=== PATIENT | female | born 1935 | race Caucasian/White ===

== ENCOUNTER 2017-02-23 08:30 | Outpatient (RCR) | payer MEDICARE, BC ==
[2017-01-26 08:52] VITALS: BP 134/77; PULSE 62; TEMP 98
[2017-01-27 08:48] VITALS: BP 126/49; PULSE 58; TEMP 98.3
[2017-01-28 08:46] VITALS: BP 122/50; PULSE 63; TEMP 98
[2017-01-28 09:37] LABS: BASO % 0.5 % (0.0-2.0); EOS # 0.3 (0.0-0.7); EOS % 5.5 % (0-4.0); GRAN # 4.3 (1.4-6.5); GRAN % 72.1 % (42.2-75.2); HEMATOCRIT 38.1 % (37.0-47.0); HEMOGLOBIN 12.6 g/dl (12.5-16.0); LYMPH # 0.9 (1.2-3.4); LYMPH % 14.5 % (20.0-51.0); MEAN CELL VOLUME 101 fl (80.0-100.0); MEAN CORPUSCULAR HEMOGLOBIN 34 pg (27.0-31.0); MEAN CORPUSCULAR HGB CONC 33 g/dl (33.0-37.0); MEAN PLATELET VOLUME 11.7 fl (7.4-10.4); MONO # 0.4 (0.1-0.6); MONO % 7.2 % (1.7-9.3); PLATELET COUNT 194 K/mm3 (130-400); RED BLOOD COUNT 3.76 M/mm3 (4.10-5.30)
[2017-01-28 09:46] LABS: ADJUSTED CALCIUM 9.6 mg/dL (8.4-10.2); ALANINE AMINOTRANSFERASE 28 U/L (9-52); ALBUMIN 3.9 gm/dL (3.5-5.0); ALKALINE PHOSPHATASE 69 U/L (50-136); ANION GAP 8 mmol/L (7-16); BILIRUBIN,TOTAL 0.5 mg/dL (0.0-1.0); BLOOD UREA NITROGEN 20 mg/dL (7-17); CALCIUM 9.5 mg/dL (8.4-10.2); CARBON DIOXIDE 30 mmol/L (22-30); CHLORIDE 102 mmol/L (98-107); CREATININE, serum 0.66 mg/dL (0.52-1.25); GLUCOSE 117 mg/dL (74-106); POTASSIUM 4.1 mmol/L (3.4-5.0); SODIUM 140 mmol/L (137-145); TOTAL PROTEIN 6.5 gm/dL (6.4-8.2)
[2017-01-28 09:47] LABS: C-REACTIVE PROTEIN < 0.5 mg/dL (0.0-0.9)
[2017-01-28 10:22] LABS: ERYTHROCYTE SEDIMENTATION RATE 13 mm/hr (0-30)
[2017-01-29 08:28] VITALS: BP 120/59; PULSE 60; TEMP 97.7
[2017-01-30 08:49] VITALS: BP 124/68; PULSE 63; TEMP 97.2
[2017-01-31 08:57] VITALS: BP 149/56; PULSE 69; TEMP 97.9
[2017-02-01 08:21] VITALS: BP 140/59; PULSE 64; TEMP 97.5
[2017-02-02 08:37] VITALS: BP 132/54; PULSE 61; TEMP 98
[2017-02-03 08:44] VITALS: BP 128/57; PULSE 63; TEMP 98.4
[2017-02-04 08:23] VITALS: BP 147/57; PULSE 62; TEMP 97.3
[2017-02-05 08:55] VITALS: BP 148/72; PULSE 62; TEMP 97.3
[2017-02-06 08:24] VITALS: BP 121/66; PULSE 104; TEMP 97.4
[2017-02-07 08:42] VITALS: BP 127/73; PULSE 62; TEMP 97.8
[2017-02-08 08:43] VITALS: BP 129/76; PULSE 97; TEMP 97.9
[2017-02-09 06:05] VITALS: BP 143/66; PULSE 69; TEMP 97.8
[2017-02-09 06:20] LABS: BASO # 0.1 (0.0-0.2); BASO % 0.9 % (0.0-2.0); EOS # 0.4 (0.0-0.7); EOS % 5.3 % (0-4.0); GRAN # 4.8 (1.4-6.5); GRAN % 70.8 % (42.2-75.2); HEMATOCRIT 39.9 % (37.0-47.0); HEMOGLOBIN 13.3 g/dl (12.5-16.0); LYMPH % 15.2 % (20.0-51.0); MEAN CELL VOLUME 101 fl (80.0-100.0); MEAN CORPUSCULAR HEMOGLOBIN 34 pg (27.0-31.0); MEAN CORPUSCULAR HGB CONC 33 g/dl (33.0-37.0); MEAN PLATELET VOLUME 11.7 fl (7.4-10.4); MONO # 0.5 (0.1-0.6); MONO % 7.5 % (1.7-9.3); PLATELET COUNT 197 K/mm3 (130-400); RED BLOOD COUNT 3.94 M/mm3 (4.10-5.30); WHITE BLOOD COUNT 6.8 K/mm3 (4.8-10.8)
[2017-02-09 06:42] LABS: ERYTHROCYTE SEDIMENTATION RATE 14 mm/hr (0-30)
[2017-02-09 07:07] LABS: ADJUSTED CALCIUM 9.4 mg/dL (8.4-10.2); BILIRUBIN,TOTAL 0.8 mg/dL (0.0-1.0); CALCIUM 9.4 mg/dL (8.4-10.2); CREATININE, serum 0.7 mg/dL (0.52-1.25); POTASSIUM 3.9 mmol/L (3.4-5.0); TOTAL PROTEIN 6.7 gm/dL (6.4-8.2)
[2017-02-10 13:09] VITALS: BP 117/50; PULSE 59; TEMP 97.7
[2017-02-11 11:35] VITALS: BP 112/58; PULSE 60; TEMP 98.6
[2017-02-12 08:34] VITALS: BP 151/65; PULSE 65; TEMP 98.2
[2017-02-13 08:30] VITALS: BP 123/89; PULSE 58; TEMP 97.9
[2017-02-14 08:27] VITALS: BP 144/62; PULSE 64; TEMP 97.6
[2017-02-15 08:36] VITALS: BP 129/52; PULSE 60; TEMP 97.6
[2017-02-16 08:38] VITALS: BP 130/59; PULSE 59; TEMP 97.9
[2017-02-16 09:00] LABS: BASO # 0.1 (0.0-0.2); BASO % 0.8 % (0.0-2.0); EOS # 0.4 (0.0-0.7); EOS % 5.9 % (0-4.0); GRAN # 4.6 (1.4-6.5); GRAN % 71.6 % (42.2-75.2); HEMATOCRIT 41.7 % (37.0-47.0); HEMOGLOBIN 13.9 g/dl (12.5-16.0); LYMPH # 0.9 (1.2-3.4); LYMPH % 14.2 % (20.0-51.0); MEAN CELL VOLUME 101 fl (80.0-100.0); MEAN CORPUSCULAR HEMOGLOBIN 34 pg (27.0-31.0); MEAN CORPUSCULAR HGB CONC 33 g/dl (33.0-37.0); MEAN PLATELET VOLUME 11.9 fl (7.4-10.4); MONO # 0.5 (0.1-0.6); MONO % 7.3 % (1.7-9.3); PLATELET COUNT 235 K/mm3 (130-400); RED BLOOD COUNT 4.14 M/mm3 (4.10-5.30); WHITE BLOOD COUNT 6.4 K/mm3 (4.8-10.8)
[2017-02-16 09:06] LABS: ADJUSTED CALCIUM 9.9 mg/dL (8.4-10.2); ALANINE AMINOTRANSFERASE 48 U/L (9-52); ALBUMIN 4.5 gm/dL (3.5-5.0); ALKALINE PHOSPHATASE 83 U/L (50-136); ANION GAP 8 mmol/L (7-16); BILIRUBIN,TOTAL 0.8 mg/dL (0.0-1.0); BLOOD UREA NITROGEN 20 mg/dL (7-17); CALCIUM 10.3 mg/dL (8.4-10.2); CARBON DIOXIDE 31 mmol/L (22-30); CHLORIDE 99 mmol/L (98-107); CREATININE, serum 0.68 mg/dL (0.52-1.25); GLUCOSE 130 mg/dL (74-106); POTASSIUM 4.5 mmol/L (3.4-5.0); SODIUM 137 mmol/L (137-145); TOTAL PROTEIN 7.6 gm/dL (6.4-8.2)
[2017-02-16 09:11] LABS: C-REACTIVE PROTEIN < 0.5 mg/dL (0.0-0.9)
[2017-02-16 09:24] LABS: ERYTHROCYTE SEDIMENTATION RATE 13 mm/hr (0-30)
[2017-02-17 08:47] VITALS: BP 137/58; PULSE 63; TEMP 97.7
[2017-02-18 08:30] VITALS: BP 153/54; PULSE 65; TEMP 97.5
[2017-02-19 08:34] VITALS: BP 130/53; PULSE 67; TEMP 97.7
[2017-02-20 08:31] VITALS: BP 142/55; PULSE 62; TEMP 97.4
[2017-02-21 08:07] VITALS: BP 114/60; PULSE 64; TEMP 97.6
[2017-02-22 08:05] VITALS: BP 149/58; PULSE 61; TEMP 97
[~2017-02-23] VITALS: Ht 160 cm; Wt 90.8 kg
[2017-02-23 08:30] VITALS: BP 121/52; PULSE 60; TEMP 97.9
[~2017-02-23 08:30] MED LIST: ALDACTONE50 MG PO; ALLEGRA 60MG TA60 MG PO; ALLEGRA180 MG PO; ASPIRIN 32325 MG/TAB PO; ASPIRIN 81M81 MG/TA2 PO; BETAPACE AF120 MG PO; BETAPACE240 MG PO; BINOSTO PO; CALCIUM CITRAT950 MG PO; CALCIUM500 MG PO; CARDIZEM CD 24240 MG PO; CARTIA XT180 MG PO; CEFTIN 250250 MG/TAB PO; ERAXIS100 MG IV; FLOVENT DI50 MCG/Act IH; FLUNISOLIDE NS; IPRATROPIUM BROM3 M1 IH; LIPITOR20 MG PO; LOPRESSOR 550 MG/TAB PO; LUTEIN20 M1 PO; LUTEIN20 MG PO; METOPROLOL SUCC25 MG PO; MOBIC15 MG PO; MYSOLINE 5050 MG/TAB PO; NORCO 325 MG-51 TAB PO; OMEGA-3 1000 MG1 CAP PO; PERCOCET 325 MG1 TA2 PO; PYRIDIUM200 M1 PO; SINGULAIR 110 MG/TAB PO; TOPAMAX 25MG25 M1 PO; VITAMIN D 1001000 IU PO; VITAMIN D5000 IU PO; ZOCOR80 MG PO; ZYRTEC 10MG10 MG PO; ZYRTEC ALLERGY10 MG
== END 2017-02-23 10:38 | disposition home or self-care (01) ==
LOC: EUO 08:30
PROVIDERS: Internal Medicine Infectious Disease
DX: J41.1 Mucopurulent chronic bronchitis (principal); J47.9 Bronchiectasis, uncomplicated; B37.9 Candidiasis, unspecified
CPT/HCPCS: C1751; C1894; J0348; J1644

== ENCOUNTER 2017-06-27 11:02 | Inpatient (IN) | payer MEDICARE, BC ==
[~2017-06-27] VITALS: Ht 160 cm; Wt 88.7 kg
[2017-06-27 12:24] LABS: BASO % 0.4 % (0.0-2.0); EOS # 0.5 (0.0-0.7); EOS % 7.4 % (0-4.0); GRAN # 5.1 (1.4-6.5); HEMATOCRIT 41.4 % (37.0-47.0); HEMOGLOBIN 13.7 g/dl (12.5-16.0); LYMPH # 0.9 (1.2-3.4); LYMPH % 12.7 % (20.0-51.0); MEAN CELL VOLUME 100 fl (80.0-100.0); MEAN CORPUSCULAR HEMOGLOBIN 33 pg (27.0-31.0); MEAN CORPUSCULAR HGB CONC 33 g/dl (33.0-37.0); MEAN PLATELET VOLUME 11.2 fl (7.4-10.4); MONO # 0.5 (0.1-0.6); MONO % 7.4 % (1.7-9.3); PLATELET COUNT 190 K/mm3 (130-400); RED BLOOD COUNT 4.14 M/mm3 (4.10-5.30); REDCELL DISTRIBUTION WIDTH-CV 13.1 % (11.5-14.5)
[2017-06-27 12:30] LABS: PROTHROMBIN TIME 11.5 SECONDS (9.7-12.8)
[2017-06-27 12:33] LABS: PARTIAL THROMBOPLASTIN TIME 27.3 SECONDS (26.0-37.0)
[2017-06-27 12:38] LABS: ALANINE AMINOTRANSFERASE 32 U/L (9-52); ALBUMIN 3.9 gm/dL (3.5-5.0); ALKALINE PHOSPHATASE 64 U/L (50-136); ANION GAP 10 mmol/L (7-16); AST,SGOT 25 U/L (15-37); BILIRUBIN,TOTAL 0.6 mg/dL (0.0-1.0); BLOOD UREA NITROGEN 27 mg/dL (7-17); CALCIUM 9.5 mg/dL (8.4-10.2); CARBON DIOXIDE 32 mmol/L (22-30); CHLORIDE 100 mmol/L (98-107); CREATININE, serum 0.67 mg/dL (0.52-1.25); GLUCOSE 118 mg/dL (74-106); POTASSIUM 4.1 mmol/L (3.4-5.0); SODIUM 142 mmol/L (137-145); TOTAL PROTEIN 7.8 gm/dL (6.4-8.2)
[2017-06-27 12:47] LABS: C-REACTIVE PROTEIN < 0.5 mg/dL (0.0-0.9); TROPONIN-I < 0.012 ng/mL (0.000-0.034)
[2017-06-27 12:51] LABS: COLLECTION METHOD CLEAN CATCH
[2017-06-27 13:06] LABS: PH 8 (5-8); SQUAMOUS EPITHELIAL 0-2 /hpf; URINE APPEARANCE Hazy; URINE BACTERIA Many /hpf; URINE BILIRUBIN Negative (NEGATIVE); URINE BLOOD 1+ (NEGATIVE); URINE COLOR Straw; URINE GLUCOSE Negative (NEGATIVE); URINE KETONE Negative (NEGATIVE); URINE LEUKOCYTE ESTERASE 3+ (NEGATIVE); URINE NITRATE Positive (NEGATIVE); URINE PROTEIN(semi-quant) Negative (NEGATIVE); URINE RBC 0-2 /hpf; URINE UROBILINOGEN Negative (NEGATIVE)
[2017-06-27 15:01] VITALS: BP 123/53; PULSE 57; TEMP 97.9
[2017-06-27 15:07] VITALS: BP 123/52; PULSE 56; TEMP 97.9
[2017-06-27 20:00] VITALS: BP 117/42; PULSE 56; TEMP 98.6
[2017-06-27 23:30] VITALS: BP 124/68; PULSE 100; TEMP 98.6
[2017-06-28 04:04] VITALS: BP 130/55; PULSE 58; TEMP 98.6
[2017-06-28 07:39] VITALS: PULSE 58; TEMP 97.6
[2017-06-28 07:44] LABS: CHOLESTEROL RISK RATIO 2.6
[2017-06-28 08:13] LABS: THYROID STIMULATING HORMONE 0.254 uIU/mL (0.465-4.680)
[2017-06-28 13:09] VITALS: BP 106/42; PULSE 58; TEMP 97.8
[2017-06-28 15:33] VITALS: BP 121/42; PULSE 60; TEMP 98.5
[2017-06-28 20:13] VITALS: BP 111/61; PULSE 60; TEMP 97.3
[2017-06-28 23:39] VITALS: BP 116/53; PULSE 55; TEMP 97.1
[2017-06-29 04:15] VITALS: BP 123/64; PULSE 55; TEMP 97.2
[2017-06-29 07:25] VITALS: BP 134/55; PULSE 58; TEMP 98.2
[2017-06-29] MEDS ORDERED: XARELTO20 MG PO (08:47)
[2017-06-29] MEDS ORDERED: CEPHALEXIN500 M1 PO (08:48)
[2017-06-29 09:40] VITALS: PULSE 68
[2017-06-29 14:45] LABS: FOLATE (FOLIC ACID) 5.8 ng/mL (7.0-31.4)
[2017-06-30] MEDS ORDERED: CEPHALEXIN500 M1 PO (11:46)
== END 2017-06-29 11:50 | disposition home or self-care (01) | DRG 65 ==
LOC: COL.ER 11:02 → MEDICAL 13:29
PROVIDERS: Emergency Medicine; Internal Medicine; Psychiatry & Neurology Neurology
DX: I63.9 Cerebral infarction, unspecified (principal); N39.0 Urinary tract infection, site not specified; H53.9 Unspecified visual disturbance; I10 Essential (primary) hypertension; I48.91 Unspecified atrial fibrillation; H81.09 Meniere's disease, unspecified ear; D75.89 Other specified diseases of blood and blood-forming organs; J47.9 Bronchiectasis, uncomplicated; E78.5 Hyperlipidemia, unspecified; Z96.641 Presence of right artificial hip joint
CPT/HCPCS: 99223-AI; 99239; J0696

== ENCOUNTER 2017-08-31 09:19 | Outpatient (CLI) | payer MEDICARE, BC ==
[~2017-08-31] VITALS: Ht 160.1 cm; Wt 86.0 kg
[2017-08-31] VITALS (10 sets, daily range): BP systolic 109–142; BP diastolic 54–78; PULSE 55–62; TEMP 97.5–98.1
[~2017-08-31 09:19] MED LIST changes: +CEPHALEXIN500 M1 PO; +XARELTO20 MG PO
[2017-08-31 09:44] LABS: HEMATOCRIT 40.1 % (37.0-47.0); HEMOGLOBIN 13.4 g/dl (12.5-16.0); MEAN CELL VOLUME 101 fl (80.0-100.0); MEAN CORPUSCULAR HEMOGLOBIN 34 pg (27.0-31.0); MEAN CORPUSCULAR HGB CONC 33 g/dl (33.0-37.0); MEAN PLATELET VOLUME 10.7 fl (7.4-10.4); PLATELET COUNT 216 K/mm3 (130-400); RED BLOOD COUNT 3.99 M/mm3 (4.10-5.30); REDCELL DISTRIBUTION WIDTH-CV 13.5 % (11.5-14.5)
[2017-08-31 09:50] LABS: PROTHROMBIN TIME 11.1 SECONDS (9.7-12.8)
[2017-08-31 09:56] LABS: CALCIUM 9.4 mg/dL (8.4-10.2); CREATININE, serum 0.63 mg/dL (0.52-1.25); POTASSIUM 4.4 mmol/L (3.4-5.0)
[2017-08-31] MEDS ORDERED: XARELTO20 MG PO (10:13)
[2017-08-31] MEDS ORDERED: ASPI325T6 PO (10:15)
[2017-08-31] MEDS ORDERED: PACERONE200 MG PO (11:30)
[2017-08-31 11:32] LABS: BILIRUBIN UNCONJUGATED 0.4 mg/dL (0.0-1.1); BILIRUBIN,DIRECT 0.2 mg/dL (0.0-0.4); BILIRUBIN,TOTAL 0.6 mg/dL (0.0-1.0); TOTAL PROTEIN 7.6 gm/dL (6.4-8.2)
[2017-08-31 12:00] LABS: THYROID STIMULATING HORMONE 0.396 uIU/mL (0.465-4.680)
== END 2017-08-31 13:16 | disposition home or self-care (01) ==
LOC: COL.RAD 09:19
PROVIDERS: Internal Medicine Cardiovascular Disease; Nurse Practitioner
DX: I08.3 Combined rheumatic disorders of mitral, aortic and tricuspid valves (principal); G45.9 Transient cerebral ischemic attack, unspecified
CPT/HCPCS: J2704; J3010; J7030

== ENCOUNTER 2018-08-20 18:21 | Emergency (ER) | payer MEDICARE, BC ==
[~2018-08-20] VITALS: Ht 160 cm; Wt 80.5 kg
[~2018-08-20 18:21] MED LIST changes: +ASPI325T6 PO; +PACERONE200 MG PO
[2018-08-20 18:23] VITALS: TEMP 98.2
[2018-08-20] MEDS ORDERED: CORDARONE200 MG/TAB PO (19:07)
[2018-08-20 21:46] VITALS: BP 124/62; PULSE 65
== END 2018-08-20 20:32 | disposition home or self-care (01) ==
LOC: COL.ER 18:21
DX: T84.020A Dislocation of internal right hip prosthesis, initial encounter (principal); I48.91 Unspecified atrial fibrillation; I10 Essential (primary) hypertension; Z86.73 Personal history of transient ischemic attack (TIA), and cerebral infarction without residual deficits; Z79.51 Long term (current) use of inhaled steroids; X50.0XXA Overexertion from strenuous movement or load, initial encounter
CPT/HCPCS: J2405; J2704; J3010; J7040

== ENCOUNTER → 2018-12-27 | Outpatient (CLI) | payer MEDICARE, BC ==
[~2018-12-27] MED LIST changes: +CORDARONE200 MG/TAB PO
== END ==
LOC: COL.RAD 12:47
DX: G25.0 Essential tremor (principal); G31.9 Degenerative disease of nervous system, unspecified; I67.82 Cerebral ischemia

== ENCOUNTER 2019-02-21 09:23 | Emergency (ER) | payer MEDICARE, BC ==
[~2019-02-21] VITALS: Ht 160 cm; Wt 74.5 kg
[2019-02-21 09:24] VITALS: TEMP 98.3
[2019-02-21 10:08] LABS: BASO % 0.5 % (0.0-2.0); EOS # 0.5 (0.0-0.7); EOS % 8.1 % (0-4.0); GRAN # 4.6 (1.4-6.5); GRAN % 73.2 % (42.2-75.2); HEMATOCRIT 38.6 % (37.0-47.0); LYMPH # 0.5 (1.2-3.4); LYMPH % 7.6 % (20.0-51.0); MEAN CELL VOLUME 104 fl (80.0-100.0); MEAN CORPUSCULAR HEMOGLOBIN 35 pg (27.0-31.0); MEAN CORPUSCULAR HGB CONC 34 g/dl (33.0-37.0); MEAN PLATELET VOLUME 11.1 fl (7.4-10.4); MONO # 0.6 (0.1-0.6); PLATELET COUNT 214 K/mm3 (130-400); RED BLOOD COUNT 3.73 M/mm3 (4.10-5.30)
[2019-02-21 10:18] LABS: BILIRUBIN,TOTAL 0.6 mg/dL (0.0-1.0); CALCIUM 9.1 mg/dL (8.4-10.2); CREATININE, serum 0.72 (0.52-1.25); POTASSIUM 4.4 mmol/L (3.4-5.0)
[2019-02-21 10:49] LABS: COLLECTION METHOD CLEAN CATCH
[2019-02-21 10:56] LABS: URINE APPEARANCE Hazy; URINE COLOR Yellow
[2019-02-21 10:57] LABS: PH 7 (5-8); URINE BILIRUBIN Negative (NEGATIVE); URINE BLOOD Negative (NEGATIVE); URINE GLUCOSE Negative (NEGATIVE); URINE KETONE Negative (NEGATIVE); URINE LEUKOCYTE ESTERASE 2+ (NEGATIVE); URINE NITRATE Negative (NEGATIVE); URINE PROTEIN(semi-quant) Negative (NEGATIVE); URINE UROBILINOGEN Negative (NEGATIVE)
[2019-02-21] MEDS ORDERED: PACERONE100 MG PO (11:11)
[2019-02-21] MEDS ORDERED: COREG12.5 MG PO (11:12)
[2019-02-21] MEDS ORDERED: COUMADIN 3MG3 MG/TAB PO (11:12)
[2019-02-21] MEDS ORDERED: ALLEGRA-D 24HR1 T24 PO (11:12)
[2019-02-21 11:14] LABS: URINE RBC 0-2 /hpf
[2019-02-21 11:15] LABS: SQUAMOUS EPITHELIAL 0-2 /hpf; URINE BACTERIA Many /hpf
[2019-02-21] MEDS ORDERED: FLOVENT DI50 MCG/Act IH (11:15)
[2019-02-21] MEDS ORDERED: ALDACTONE 100M100 MG PO (11:17)
[2019-02-21] MEDS ORDERED: MACROBID 1100 MG/CAP PO (11:18)
[2019-02-21 11:55] VITALS: BP 131/63; PULSE 72
== END 2019-02-21 11:55 | disposition home or self-care (01) ==
LOC: COL.ER 09:23
PROVIDERS: Family Medicine
DX: S00.93XA Contusion of unspecified part of head, initial encounter (principal); N39.0 Urinary tract infection, site not specified; I48.91 Unspecified atrial fibrillation; I10 Essential (primary) hypertension; R40.2410 Glasgow coma scale score 13-15, unspecified time; Z79.01 Long term (current) use of anticoagulants; W01.10XA Fall on same level from slipping, tripping and stumbling with subsequent striking against unspecified object, initial encounter

== ENCOUNTER 2019-03-12 10:00 | Emergency (ER) | payer MEDICARE, BC ==
[~2019-03-12] VITALS: Ht 160 cm; Wt 75.0 kg
[~2019-03-12 10:00] MED LIST changes: +ALDACTONE 100M100 MG PO; +ALLEGRA-D 24HR1 T24 PO; +COREG12.5 MG PO; +COUMADIN 3MG3 MG/TAB PO; +MACROBID 1100 MG/CAP PO; +PACERONE100 MG PO
[2019-03-12 10:05] VITALS: TEMP 98.4
[2019-03-12 10:56] LABS: BASO % 0.6 % (0.0-2.0); EOS # 0.3 (0.0-0.7); GRAN # 4.1 (1.4-6.5); GRAN % 75.7 % (42.2-75.2); HEMATOCRIT 39.2 % (37.0-47.0); HEMOGLOBIN 13.2 g/dl (12.5-16.0); LYMPH # 0.4 (1.2-3.4); LYMPH % 8.1 % (20.0-51.0); MEAN CELL VOLUME 103 fl (80.0-100.0); MEAN CORPUSCULAR HEMOGLOBIN 35 pg (27.0-31.0); MEAN CORPUSCULAR HGB CONC 34 g/dl (33.0-37.0); MEAN PLATELET VOLUME 11.4 fl (7.4-10.4); MONO # 0.6 (0.1-0.6); MONO % 10.4 % (1.7-9.3); PLATELET COUNT 217 K/mm3 (130-400); REDCELL DISTRIBUTION WIDTH-CV 13.8 % (11.5-14.5)
[2019-03-12 11:13] LABS: ALANINE AMINOTRANSFERASE 35 U/L (9-52); ALBUMIN 4.2 gm/dL (3.5-5.0); ALKALINE PHOSPHATASE 132 U/L (50-136); ANION GAP 9 mmol/L (7-16); AST,SGOT 36 U/L (15-37); BILIRUBIN,TOTAL 0.5 mg/dL (0.0-1.0); BLOOD UREA NITROGEN 18 mg/dL (7-17); CALCIUM 9.5 mg/dL (8.4-10.2); CARBON DIOXIDE 30 mmol/L (22-30); CHLORIDE 95 mmol/L (98-107); CREATININE, serum 0.77 (0.52-1.25); GLUCOSE 125 mg/dL (74-106); LIPASE 115 U/L (23-300); POTASSIUM 4.5 mmol/L (3.4-5.0); SODIUM 134 mmol/L (137-145); TOTAL PROTEIN 8.6 gm/dL (6.4-8.2)
[2019-03-12 11:19] LABS: INR 2.8 (0.8-3.0); PROTHROMBIN TIME 33.8 SECONDS (9.7-12.8)
[2019-03-12 11:22] LABS: TROPONIN-I < 0.012 ng/mL (0.000-0.035)
[2019-03-12 11:28] LABS: COLLECTION METHOD CLEAN CATCH
[2019-03-12 11:46] LABS: MUCOUS Present /lpf; PH 7 (5-8); SQUAMOUS EPITHELIAL 0-2 /hpf; URINE APPEARANCE Hazy; URINE BACTERIA Rare /hpf; URINE BILIRUBIN Negative (NEGATIVE); URINE BLOOD 1+ (NEGATIVE); URINE COLOR Yellow; URINE GLUCOSE Negative (NEGATIVE); URINE KETONE Negative (NEGATIVE); URINE LEUKOCYTE ESTERASE 3+ (NEGATIVE); URINE NITRATE Negative (NEGATIVE); URINE PROTEIN(semi-quant) Negative (NEGATIVE); URINE RBC 0-2 /hpf; URINE UROBILINOGEN Negative (NEGATIVE)
[2019-03-12] MEDS ORDERED: OMNICEF 300MG300 MG PO (11:54)
[2019-03-12] MEDS ORDERED: CORDARONE200 MG/TAB PO (12:11)
[2019-03-12 13:00] VITALS: BP 129/68; PULSE 63
== END 2019-03-12 13:04 | disposition home or self-care (01) ==
LOC: COL.ER 10:00
PROVIDERS: Emergency Medicine
DX: N39.0 Urinary tract infection, site not specified (principal); R00.2 Palpitations; E78.5 Hyperlipidemia, unspecified; I48.91 Unspecified atrial fibrillation; Z79.01 Long term (current) use of anticoagulants; Z86.73 Personal history of transient ischemic attack (TIA), and cerebral infarction without residual deficits; Z79.51 Long term (current) use of inhaled steroids
CPT/HCPCS: A4216; J0696; J7040

== ENCOUNTER 2020-01-02 13:30 | Outpatient (RCR) | payer MEDICARE, BC ==
[~2020-01-02 13:30] MED LIST changes: +OMNICEF 300MG300 MG PO
== END 2020-02-02 15:51 | disposition home or self-care (01) ==
LOC: WSOT 13:30
DX: R53.1 Weakness (principal); R27.8 Other lack of coordination

== ENCOUNTER 2020-01-10 17:15 | Emergency (ER) | payer MEDICARE, BC ==
[~2020-01-10] VITALS: Ht 160 cm; Wt 70.5 kg
[2020-01-10 17:16] VITALS: TEMP 98.8
[2020-01-10 18:09] LABS: BASO % 0.3 % (0.0-2.0); EOS # 0.2 (0.0-0.7); GRAN # 8.3 (1.4-6.5); GRAN % 82.6 % (42.2-75.2); HEMOGLOBIN 11.7 g/dl (12.5-16.0); LYMPH # 0.6 (1.2-3.4); LYMPH % 6.3 % (20.0-51.0); MEAN CELL VOLUME 103 fl (80.0-100.0); MEAN CORPUSCULAR HEMOGLOBIN 36 pg (27.0-31.0); MEAN CORPUSCULAR HGB CONC 35 g/dl (33.0-37.0); MEAN PLATELET VOLUME 11.6 fl (7.4-10.4); MONO # 0.8 (0.1-0.6); MONO % 8.4 % (1.7-9.3); PLATELET COUNT 220 K/mm3 (130-400); RED BLOOD COUNT 3.24 M/mm3 (4.10-5.30); REDCELL DISTRIBUTION WIDTH-CV 13.5 % (11.5-14.5)
[2020-01-10 18:10] LABS: INR 3.9 (0.8-3.0); PROTHROMBIN TIME 44.2 SECONDS (9.7-12.8)
[2020-01-10 18:13] LABS: HEMATOCRIT 33.5 % (37.0-47.0)
[2020-01-10 18:19] LABS: ALBUMIN 3.8 gm/dL (3.5-5.0); BILIRUBIN,TOTAL 0.4 mg/dL (0.0-1.0); CALCIUM 9.1 mg/dL (8.4-10.2); CREATININE, serum 0.7 (0.52-1.25); POTASSIUM 4.4 mmol/L (3.4-5.0)
[2020-01-10 22:15] VITALS: BP 127/59; PULSE 64
== END 2020-01-10 22:29 | disposition home or self-care (01) ==
LOC: COL.ER 17:15
PROVIDERS: Emergency Medicine
DX: S73.014A Posterior dislocation of right hip, initial encounter (principal); I10 Essential (primary) hypertension; I48.91 Unspecified atrial fibrillation; E78.5 Hyperlipidemia, unspecified; Z86.73 Personal history of transient ischemic attack (TIA), and cerebral infarction without residual deficits; Z96.641 Presence of right artificial hip joint; Z88.2 Allergy status to sulfonamides; Z88.1 Allergy status to other antibiotic agents; Z79.01 Long term (current) use of anticoagulants; X58.XXXA Exposure to other specified factors, initial encounter; Y92.009 Unspecified place in unspecified non-institutional (private) residence as the place of occurrence of the external cause
CPT/HCPCS: J2405; J2704; J3010

== ENCOUNTER 2021-04-23 12:27 | Inpatient (IN) | payer MEDICARE, BC ==
[~2021-04-23] VITALS: Ht 160 cm; Wt 77.8 kg
[~2021-04-23 12:27] MED LIST changes: +ATIVAN 0.50.5 MG/TAB PO; +COREG 25MG25 MG/TAB PO; -COREG12.5 MG PO
[2021-04-23 12:54] LABS: BASO # 0.1 K/mm3 (0.0-0.2); BASO % 0.3 % (0.0-2.0); EOS # 0.1 K/mm3 (0.0-0.7); EOS % 0.3 % (0.0-4.0); GRAN # 16.4 K/mm3 (1.4-6.5); GRAN % 89.2 % (42.2-75.2); HEMOGLOBIN 10.2 g/dl (12.5-16.0); LYMPH # 0.5 K/mm3 (1.2-3.4); LYMPH % 2.6 % (20.0-51.0); MEAN CELL VOLUME 90 fl (80.0-100.0); MEAN CORPUSCULAR HEMOGLOBIN 29 pg (27-31); MEAN CORPUSCULAR HGB CONC 33 g/dl (33.0-37.0); MEAN PLATELET VOLUME 11.2 fl (7.4-10.4); MONO # 1.3 K/mm3 (0.1-0.6); MONO % 7.1 % (1.7-9.3); PLATELET COUNT 247 K/mm3 (130-400); REDCELL DISTRIBUTION WIDTH-CV 19.1 % (11.5-14.5)
[2021-04-23 12:57] LABS: HEMATOCRIT 31.4 % (37.0-47.0)
[2021-04-23 13:12] LABS: ALANINE AMINOTRANSFERASE 61 U/L (0-55); ALBUMIN 3.2 gm/dL (3.4-4.8); ALKALINE PHOSPHATASE 88 U/L (40-150); ANION GAP 8 mmol/L (7-16); AST,SGOT 47 U/L (5-34); BILIRUBIN,TOTAL 0.7 mg/dL (0.2-1.2); BLOOD UREA NITROGEN 25 mg/dL (10-20); CARBON DIOXIDE 28 mmol/L (23-31); CHLORIDE 93 mmol/L (98-107); CREATININE, serum 0.73 mg/dL (0.57-1.11); GLUCOSE 163 mg/dL (70-99); POTASSIUM 4.6 mmol/L (3.5-4.5); SODIUM 129 mmol/L (136-145); TOTAL PROTEIN 6.7 gm/dL (6.2-8.1)
[2021-04-23 13:19] LABS: TROPONIN-I < 0.010 ng/mL (0.00-0.033)
--- NOTE | 2021-04-23 18:52 | NUR ---
PT ADMITTED TO UNIT. ADMISSION INTAKE AND ASSESSMENT COMPLETED. ORIENTED PT TO ROOM. PT COMPLAINING OF BACK PAIN OF A 10/10, LIDOCAINE PATCH GIVEN PER MAR. DENIES ANY OTHER NEEDS AT THIS TIME. DINNER TRAY ORDERED UP TO ROOM. WILL PASS ALONG REPORT TO NIGHT NURSE.
[2021-04-23 19:03] VITALS: BP 130/65; PULSE 68; TEMP 99
--- NOTE | 2021-04-23 20:00 | NUR ---
Patient is resting in bed with at the bedside. Alert and oriented x 4, hard hearing. brught her medications, updated according to PT. Telemetry in place. SCDs working. 2L O2 NC. Shaking of her arms, speciall y the left one. Assessment completed, medications provided. No further needs at this time. Call light within reach.
[2021-04-23 23:48] VITALS: BP 113/49; PULSE 62; TEMP 98.9
[2021-04-24 03:49] VITALS: BP 127/52; PULSE 65; TEMP 98.4
--- NOTE | 2021-04-24 06:06 | NUR ---
Pt had an uneventful night. VSS. No pain complains. Report will be given to day RN.
[2021-04-24 06:19] LABS: BASO % 0.1 % (0.0-2.0); EOS # 0.1 K/mm3 (0.0-0.7); EOS % 0.6 % (0.0-4.0); GRAN # 15.7 K/mm3 (1.4-6.5); GRAN % 89.3 % (42.2-75.2); LYMPH # 0.5 K/mm3 (1.2-3.4); LYMPH % 3.1 % (20.0-51.0); MEAN CELL VOLUME 92 fl (80.0-100.0); MEAN CORPUSCULAR HGB CONC 32 g/dl (33.0-37.0); MEAN PLATELET VOLUME 11.9 fl (7.4-10.4); MONO # 1.1 K/mm3 (0.1-0.6); MONO % 6.3 % (1.7-9.3); PLATELET COUNT 228 K/mm3 (130-400); RED BLOOD COUNT 3.33 M/mm3 (4.10-5.30); REDCELL DISTRIBUTION WIDTH-CV 19.3 % (11.5-14.5)
[2021-04-24 06:28] LABS: HEMATOCRIT 30.5 % (37.0-47.0); HEMOGLOBIN 9.6 g/dl (12.5-16.0); MEAN CORPUSCULAR HEMOGLOBIN 29 pg (27-31)
[2021-04-24 06:38] LABS: ALBUMIN 2.7 gm/dL (3.4-4.8); BILIRUBIN,TOTAL 0.7 mg/dL (0.2-1.2); CALCIUM 8.7 mg/dL (8.4-10.2); CREATININE, serum 0.71 mg/dL (0.57-1.11); POTASSIUM 4.2 mmol/L (3.5-4.5); TOTAL PROTEIN 5.8 gm/dL (6.2-8.1)
[2021-04-24 08:45] VITALS: BP 116/43; PULSE 66; TEMP 98
--- NOTE | 2021-04-24 09:29 | NUR ---
Initial visit; Patient thanked Makeup Sales Consultant for looking in on her and offering encouragement and prayer. Makeup Sales Consultant will follow up.
[2021-04-24 11:45] VITALS: BP 119/45; PULSE 68; TEMP 100.1
--- NOTE | 2021-04-24 13:51 | NUR ---
Pt. progressing w/ plan of care. Pt. desat on RA today to 85-88%. Pt. now 97% on 1L O2 NC, RT Tonya removed pt. from oxygen. Pt. now receiving IV rocephin from this RN. Needs addressed, call light and belongings in reach.
--- NOTE | 2021-04-24 14:14 | NUR ---
machine lay out worker met with patient at bedside to discuss discharge plan. Patient's Tello ([phone]) present at bedside. Patient reports that at home she has been independent with her ADL's and was using a cane to assist with mobility but has had to switch to a 4WW due to falls. Patient reports to no oxygen needs at home. PCP is Dr. Banerjee and she utilizes [facility] for perscriptions with no current cost issues. States she does have a DPOA-HC established and that PCP's office should have a copy of it. COntact made with N[facility]onja at [facility] and message left. Discharge plan: Home pending PT/OT rec's
[2021-04-24 16:29] VITALS: BP 107/56; PULSE 68; TEMP 99.4
--- NOTE | 2021-04-24 17:45 | NUR ---
This RN spoke w/ Dr. Stoll, radiologist regarding pt.'s original plans for vertebroplasty. Dr. Stoll reports with patient's pneumonia it would not be reccommended for a vertebroplasty for tomorrow. Dr. Stoll reports he will let TRICIA Yates/ Dr. Pereira know.
--- NOTE | 2021-04-24 18:00 | NUR ---
Pt. was on RA this afternoon and later O2 sat desat to 87%. Pt. placed back on 1.5L O2 NC, O2 now WNL.
[2021-04-24 20:05] VITALS: BP 116/46; PULSE 65; TEMP 99.7
--- NOTE | 2021-04-24 20:20 | NUR ---
Patient is resting in bed, alert and oriented x 4, VSS, denies pain, nausea or vomiting. Telemetry in place. 1.5L O2 NC. SCDs working. Assessment completed, medications provided. No further needs at this time. Call light within reach.
[2021-04-25 00:07] VITALS: BP 106/82; PULSE 63; TEMP 97.5
[2021-04-25 04:24] VITALS: BP 114/46; PULSE 63; TEMP 98.1
[2021-04-25 06:12] LABS: BASO % 0.1 % (0.0-2.0); EOS # 0.1 K/mm3 (0.0-0.7); EOS % 0.8 % (0.0-4.0); GRAN # 11.1 K/mm3 (1.4-6.5); GRAN % 86.5 % (42.2-75.2); LYMPH # 0.5 K/mm3 (1.2-3.4); LYMPH % 4.1 % (20.0-51.0); MEAN CELL VOLUME 90 fl (80.0-100.0); MEAN CORPUSCULAR HGB CONC 32 g/dl (33.0-37.0); MEAN PLATELET VOLUME 11.8 fl (7.4-10.4); MONO % 7.7 % (1.7-9.3); PLATELET COUNT 210 K/mm3 (130-400); RED BLOOD COUNT 3.37 M/mm3 (4.10-5.30); REDCELL DISTRIBUTION WIDTH-CV 19.5 % (11.5-14.5)
[2021-04-25 06:20] LABS: INR 1.3 (0.8-3.0); PROTHROMBIN TIME 14.6 SECONDS (9.7-12.8)
[2021-04-25 06:21] LABS: HEMATOCRIT 30.4 % (37.0-47.0); HEMOGLOBIN 9.6 g/dl (12.5-16.0); MEAN CORPUSCULAR HEMOGLOBIN 28 pg (27-31)
[2021-04-25 06:22] LABS: CALCIUM 8.6 mg/dL (8.4-10.2); CREATININE, serum 0.7 mg/dL (0.57-1.11); POTASSIUM 4.6 mmol/L (3.5-4.5)
--- NOTE | 2021-04-25 07:16 | NUR ---
Patient had a calm night. No major issues. Report given to day RN.
--- NOTE | 2021-04-25 08:48 | NUR ---
Assessment completed, alert/oriented, vital signs stable, reports back pain is unchanged/ lidocaine patch applied, patient was schedueld for outpatient vertebroplasty, denies resp.difficulty, lungs CTA/diminsihed right lung sounds, requring 1.5L o2/ will do ex.ox to eval need for oxygen upon discharge from hospital, she has taken morning meds and waiting for breakfast, denies other needs at this time
[2021-04-25] MEDS ORDERED: OXYGEN NASAL.CANN (09:26)
[2021-04-25] MEDS ORDERED: OMNICEF 300MG300 MG PO (09:31)
[2021-04-25 11:33] VITALS: BP 108/50; PULSE 63; TEMP 98.3
[2021-04-25] MEDS ORDERED: LOVENOX120 MG/0.8 SQ (11:58)
--- NOTE | 2021-04-25 15:03 | NUR ---
Radio Tester spoke with TRICIA Yates who advised patient will need home oxygen at time of discharge, which will be today. SW met with patient and she selected [facility]. SW also discussed Home Health services and it's benefits. Patient is agreeable to this and selected [facility]. SW faxed referral/orders for home oxygen to [facility]. MERT collaborated with patient's , Tello who will clam picker the oxygen supplies prior to discharge. MERT also contacted Gisel at [facility] and faxed referral and orders. Gisel advised they will be able to accept patient. Discharge Plan: Home with HH
--- NOTE | 2021-04-25 15:07 | NUR ---
Discharge instructions reveiwed with the patient and her , instructed to follow up as scheduled, discussed that we rescehduled her vertebroplasty , instructed to hold Coumading and give Lovenox injections as ordered/ demonstration given to , scripts sent to pharmacy for her, IV and tele removed, leaving with her , BLOCK CHOPPER HAND escorted them out by wheelchair
== END 2021-04-25 15:48 | disposition home health service (06) | DRG 871 ==
LOC: COL.ER 12:27 → MEDICAL 14:53
PROVIDERS: Physician Assistant; ADMIT Internal Medicine
DX: A41.9 Sepsis, unspecified organism (principal); J96.01 Acute respiratory failure with hypoxia; J18.9 Pneumonia, unspecified organism; E87.1 Hypo-osmolality and hyponatremia; J47.0 Bronchiectasis with acute lower respiratory infection; M48.54XA Collapsed vertebra, not elsewhere classified, thoracic region, initial encounter for fracture; I48.91 Unspecified atrial fibrillation; I10 Essential (primary) hypertension; E78.5 Hyperlipidemia, unspecified; H81.09 Meniere's disease, unspecified ear; D64.9 Anemia, unspecified; M81.0 Age-related osteoporosis without current pathological fracture; Z20.822 Contact with and (suspected) exposure to COVID-19; Z96.653 Presence of artificial knee joint, bilateral; Z96.649 Presence of unspecified artificial hip joint; Z79.01 Long term (current) use of anticoagulants; Z86.73 Personal history of transient ischemic attack (TIA), and cerebral infarction without residual deficits
CPT/HCPCS: 99223-AI; 99232-AI; 99239; A9284; J0456; J0696; J1650; J7030; J7050

== ENCOUNTER 2021-05-06 08:11 | Outpatient (CLI) | payer MEDICARE, BC ==
[2021-05-06] VITALS (10 sets, daily range): BP systolic 104–146; BP diastolic 48–71; PULSE 54–76; TEMP 97.7
[~2021-05-06] VITALS: Ht 160 cm; Wt 70.4 kg
[~2021-05-06 08:11] MED LIST changes: +CARDIZEM CD 12120 MG PO; -CARDIZEM CD 24240 MG PO; +LOVENOX120 MG/0.8 SQ; +OXYGEN NASAL.CANN
[2021-05-06] MEDS ORDERED: PACERONE200 MG PO (08:40)
[2021-05-06] MEDS ORDERED: ATROVENT NASAL15 ML NS (08:47)
[2021-05-06] MEDS ORDERED: COREG 25MG25 MG/TAB PO (08:47)
[2021-05-06] MEDS ORDERED: MASON NATURAL2000 IU PO ×2 (08:48→08:50)
--- NOTE | 2021-05-06 10:36 | NUR ---
SEE MERGE FOR ALL MEDICATION ADMINISTRATION TIMES/DOSAGES AND INTRA/POST SEDATION ASSESSMENTS.
[2021-05-06] MEDS ORDERED: COUMADIN 3MG3 MG/TAB PO (11:26)
[2021-05-06] MEDS ORDERED: COUMADIN 2MG2 MG/TAB PO (11:27)
--- NOTE | 2021-05-06 13:51 | NUR ---
Pt is feeling much better, and is ready for discharge. Dr. Stoll has been in to see patient who is able to sit up at edge of bed with no problem. She is also able to ambulate with walker with steady gait. Pt has remained on room air throughout her stay today with sats remaining mid 90's. IV dc'd with cath intact, dressing is applied. I have reviewed dc instructions with pt and . both deny any concerns. Pt also instructed to resume her coumadin as normal tomorrow.. Pt is escorted to exit via wheelchair.
== END 2021-05-06 13:51 | disposition home or self-care (01) ==
LOC: COL.CAR 08:11
DX: S22.060A Wedge compression fracture of T7-T8 vertebra, initial encounter for closed fracture (principal); S22.070A Wedge compression fracture of T9-T10 vertebra, initial encounter for closed fracture; M81.0 Age-related osteoporosis without current pathological fracture; W19.XXXA Unspecified fall, initial encounter; Z86.73 Personal history of transient ischemic attack (TIA), and cerebral infarction without residual deficits; Z99.81 Dependence on supplemental oxygen
CPT/HCPCS: C1713; J2250; J3010; J7120

== ENCOUNTER 2022-06-24 18:18 | Emergency (ER) | payer MEDICARE, BC ==
[~2022-06-24] VITALS: Ht 160 cm; Wt 66.8 kg
[~2022-06-24 18:18] MED LIST changes: +ATROVENT NASAL15 ML NS; +COUMADIN 2MG2 MG/TAB PO; +MASON NATURAL2000 IU PO
[2022-06-24 18:19] VITALS: TEMP 98.5
[2022-06-24 18:49] LABS: BASO % 0.5 % (0.0-2.0); EOS # 0.3 K/mm3 (0.0-0.7); EOS % 4.8 % (0.0-4.0); GRAN # 4.3 K/mm3 (1.4-6.5); GRAN % 73.2 % (42.2-75.2); LYMPH # 0.7 K/mm3 (1.2-3.4); LYMPH % 12.2 % (20.0-51.0); MEAN CELL VOLUME 117 fl (80.0-100.0); MEAN CORPUSCULAR HGB CONC 32 g/dl (33.0-37.0); MEAN PLATELET VOLUME 10.6 fl (7.4-10.4); MONO # 0.5 K/mm3 (0.1-0.6); MONO % 8.3 % (1.7-9.3); PLATELET COUNT 268 K/mm3 (130-400); RED BLOOD COUNT 2.55 M/mm3 (4.10-5.30); REDCELL DISTRIBUTION WIDTH-CV 17.8 % (11.5-14.5)
[2022-06-24 18:52] LABS: HEMATOCRIT 29.8 % (37.0-47.0); HEMOGLOBIN 9.4 g/dl (12.5-16.0); MEAN CORPUSCULAR HEMOGLOBIN 37 pg (27-31)
[2022-06-24 18:59] LABS: CALCIUM 9.3 mg/dL (8.4-10.2); CREATININE, serum 0.78 mg/dL (0.57-1.11); POTASSIUM 4.6 mmol/L (3.5-4.5)
[2022-06-24 20:33] VITALS: BP 120/65; PULSE 67
== END 2022-06-24 20:33 | disposition home or self-care (01) ==
LOC: COL.ER 18:18
PROVIDERS: Emergency Medicine
DX: S20.211A Contusion of right front wall of thorax, initial encounter (principal); M84.48XA Pathological fracture, other site, initial encounter for fracture; D64.9 Anemia, unspecified; E87.5 Hyperkalemia; Z79.02 Long term (current) use of antithrombotics/antiplatelets; W18.30XA Fall on same level, unspecified, initial encounter; Y92.009 Unspecified place in unspecified non-institutional (private) residence as the place of occurrence of the external cause
CPT/HCPCS: J3010

== ENCOUNTER → 2023-04-02 | Outpatient (CLI) | payer MEDICARE, BC ==
[~2023-04-02] MED LIST changes: +ELIQUIS 2.5 PO; +FLONASEALLERGY NS; +LASIX 20MG TABL20 MG PO; +NATURAL IRON65 MG PO
[2023-04-02 16:08] LABS: BAND 23 % (0-10); EOSINOPHIL 3 % (0-4); LYMPHOCYTE 6 % (20.0-51.0); METAMYELOCYTE 1 % (0-0); NEUTROPHILS 63 % (42.0-75.2)
[2023-04-02 16:09] LABS: ANISOCYTOSIS 2+; HYPOCHROMIA 3+; PLATELET ESTIMATE INCREASED (NORMAL); POLYCHROMASIA 1+
[2023-04-02 16:10] LABS: TARGET CELLS 2+
[2023-04-02 16:11] LABS: OVALOCYTES 1+
[2023-04-02 16:12] LABS: SCHISTOCYTES 1+
== END ==
LOC: ZCOL.LAB 14:08
PROVIDERS: Family Medicine
DX: D64.9 Anemia, unspecified (principal)

== ENCOUNTER 2023-07-31 10:00 | Observation (INO) | payer MEDICARE, BC ==
[2023-07-31] VITALS (8 sets, daily range): BP systolic 114–134; BP diastolic 46–57; PULSE 61–67; TEMP 97.8–98.5
[~2023-07-31] VITALS: Ht 160 cm; Wt 71.5 kg
[2023-07-31] MEDS ORDERED: Acetaminophen 325 MG TAB PO SCH (16:15)
[2023-07-31] MEDS ORDERED: diphenhydrAMINE 25 MG CAP PO SCH (16:15)
[2023-07-31] MEDS ORDERED: NS 250 ML IV SCH (16:15)
--- NOTE | 2023-07-31 20:22 | NUR ---
Pt. arrived to the floor. Pt. is A&OX3, assessment complete. Pt. denies pain or other needs, Call light within reach.
[2023-07-31] MEDS ORDERED: Atorvastatin 20 MG TAB PO SCH (20:58)
[2023-07-31] MEDS ORDERED: Omega-3 Fatty Acid Esters (OTC) 1,000 MG CAP PO SCH (20:59)
[2023-07-31] MEDS ORDERED: Montelukast 10 MG TAB PO PRN (21:00)
[2023-07-31] MEDS ORDERED: Primidone 50 MG TAB PO SCH (21:00)
--- NOTE | 2023-07-31 21:00 | NUR ---
First unit of PRBC's started at this time. Vitals signs WNL. Educated pt. on Transfusion reactions. Pt. voices understanding. Will remain at bedside for next 15 minutes.
[2023-07-31] MEDS ORDERED: Furosemide 40 MG/4 ML VIAL IV ONE (21:15)
[2023-07-31] MEDS ORDERED: Acetaminophen 325 MG TAB PO PRN (21:15)
--- NOTE | 2023-07-31 21:22 | NUR ---
First 15 minutes complete. Pt. tolerating transfusion. pt. denies further needs. Call light within reach.
[2023-07-31 21:47] LABS: MEAN CELL VOLUME 79 fl (80.0-100.0); MEAN CORPUSCULAR HGB CONC 28 g/dl (33.0-37.0); MEAN PLATELET VOLUME 10.4 fl (7.4-10.4); PLATELET COUNT 331 K/mm3 (130-400); RED BLOOD COUNT 2.74 M/mm3 (4.10-5.30); REDCELL DISTRIBUTION WIDTH-CV 23.9 % (11.5-14.5)
[2023-07-31 21:51] LABS: HEMATOCRIT 21.5 % (37.0-47.0); HEMOGLOBIN 6.1 g/dl (12.5-16.0); MEAN CORPUSCULAR HEMOGLOBIN 22 pg (27-31)
--- NOTE | 2023-07-31 22:00 | NUR ---
Notified TRICIA Palencia of Pt. hgb. No new orders at this time.
[2023-07-31 22:08] LABS: CALCIUM 8.7 mg/dL (8.4-10.2); CREATININE, serum 0.74 mg/dL (0.57-1.11); POTASSIUM 4.4 mEq/L (3.5-4.5)
[2023-08-01] VITALS (14 sets, daily range): BP systolic 97–125; BP diastolic 44–79; PULSE 60–98; TEMP 97.5–98.8
--- NOTE | 2023-08-01 00:08 | NUR ---
First unit complete at this time. Pt. tolerated well. Pt. denies further needs. Will give lasix.
--- NOTE | 2023-08-01 01:15 | NUR ---
Second unit started at this time. Reviewed with the pt. S/S of transfusion reaction. Pt. voices understanding. Will remain at bedside for first 15 minutes.
--- NOTE | 2023-08-01 01:28 | NUR ---
First 15 minutes of second transfusion complete. Pt. continues to tolerate well without s/s of reaction. Pt. denies further needs. Call light within reach.
[2023-08-01 06:14] LABS: BILIRUBIN,TOTAL 0.6 mg/dL (0.2-1.2); CALCIUM 8.8 mg/dL (8.4-10.2); CREATININE, serum 0.74 mg/dL (0.57-1.11); POTASSIUM 3.9 mEq/L (3.5-4.5); TOTAL PROTEIN 5.8 g/dl (6.2-8.1)
[2023-08-01] MEDS ORDERED: Carvedilol 25 MG TAB PO SCH (08:00)
--- NOTE | 2023-08-01 08:48 | NUR ---
SW met with patient to complete intake. Patient states that she lives with spouse Tello Barrientos [phone] who is also appointed as DPOA/HC. Patient provides she utilizes a rollater around her home, and does not utilize any home health services at this time, PCP is Dr. Banerjee, and pharmacy is [facility]. Patient provides her plan of discharge is to return to her home. SW will continue to follow. Discharge plan: home with spouse.
[2023-08-01] MEDS ORDERED: Amiodarone 200 MG TAB PO SCH (09:00)
[2023-08-01] MEDS ORDERED: Sennosides/Docusate 8.6-50 MG TAB PO SCH (09:00)
[2023-08-01 09:03] LABS: BASO # 0.1 K/mm3 (0.0-0.2); BASO % 0.7 % (0.0-2.0); EOS # 0.3 K/mm3 (0.0-0.7); EOS % 4.3 % (0.0-4.0); GRAN # 5.7 K/mm3 (1.4-6.5); GRAN % 78.5 % (42.2-75.2); LYMPH # 0.6 K/mm3 (1.2-3.4); LYMPH % 8.7 % (20.0-51.0); MEAN CELL VOLUME 81 fl (80.0-100.0); MEAN CORPUSCULAR HGB CONC 31 g/dl (33.0-37.0); MEAN PLATELET VOLUME 10.7 fl (7.4-10.4); MONO # 0.6 K/mm3 (0.1-0.6); MONO % 7.7 % (1.7-9.3); PLATELET COUNT 322 K/mm3 (130-400); RED BLOOD COUNT 3.77 M/mm3 (4.10-5.30); REDCELL DISTRIBUTION WIDTH-CV 22.1 % (11.5-14.5)
[2023-08-01 09:05] LABS: HEMATOCRIT 30.5 % (37.0-47.0); MEAN CORPUSCULAR HEMOGLOBIN 25 pg (27-31)
[2023-08-01 09:06] LABS: HEMOGLOBIN 9.4 g/dl (12.5-16.0)
--- NOTE | 2023-08-01 13:00 | NUR ---
PATIENT IV REMOVED. .PATIENT ASSISTED TO DRESS FOR DISCHAGRE. PATIENT GIVEN DISCHARGE INFO AND EUDCATION. PATIENT DENIES ANY QUESTIONS OR COMPLAINTS. PATIENT TAKEN VIA WHEELCHAIR TO ER ENTRANCE WHERE SHE LEFT IN STABLE CONDITION.
== END 2023-08-01 13:00 | disposition home or self-care (01) ==
LOC: EDSTATUS 10:00 → EUO 15:11 → MEDICAL 18:45
PROVIDERS: Physician Assistant; ADMIT Internal Medicine
DX: D64.9 Anemia, unspecified (principal); I48.91 Unspecified atrial fibrillation; G25.0 Essential tremor; E78.5 Hyperlipidemia, unspecified; G47.33 Obstructive sleep apnea (adult) (pediatric); Z99.89 Dependence on other enabling machines and devices; Z79.01 Long term (current) use of anticoagulants; Z79.899 Other long term (current) drug therapy; Z85.6 Personal history of leukemia
CPT/HCPCS: G0378; G0379; J1940; J7050; P9016

== ENCOUNTER 2023-09-08 10:31 | Inpatient (IN) | payer MEDICARE, BC ==
[2023-09-08] VITALS (13 sets, daily range): BP systolic 112–136; BP diastolic 51–74; PULSE 58–78; TEMP 97.2–98.1
[~2023-09-08] VITALS: Ht 160 cm; Wt 77.2 kg
[~2023-09-08 10:31] MED LIST changes: +LR 1,000 ML IV SCH; +Lidocaine PF 2% (20 MG/ML) 5 ML VIAL ONE; +NS 10 ML IV ONE; +Ondansetron 4 MG/2 ML VIAL ONE; +Rocuronium 50 MG/5 ML Multi-Dose VIAL ONE; +dexAMETHasone 10 MG/ML VIAL ONE
[2023-09-08] MEDS ORDERED: fentaNYL 50 MCG/ML 2 ML VIAL ONE (11:00)
[2023-09-08] MEDS ORDERED: Gabapentin 100 MG CAP PO SCH (11:30)
[2023-09-08] MEDS ORDERED: Celecoxib 200 MG CAP PO SCH (11:30)
[2023-09-08] MEDS ORDERED: Acetaminophen 500 MG TAB PO SCH ×2 (11:30→16:00)
[2023-09-08] MEDS ORDERED: metroNIDAZOLE 500 MG/100 ML IVPB IV ONE (11:30)
[2023-09-08] MEDS ORDERED: hydrALAZINE 20 MG/ML 1 ML VIAL IV PRN (12:00)
[2023-09-08] MEDS ORDERED: HYDROmorphone 1 MG/1 ML SYRINGE [PACU/SDC ONLY] IV PRN (12:00)
[2023-09-08] MEDS ORDERED: Ondansetron 4 MG/2 ML VIAL IV PRN ×2 (12:00→15:00)
[2023-09-08] MEDS ORDERED: fentaNYL 50 MCG/ML 1 ML SYRINGE/VIAL [PACU/SDC ONLY] IV PRN (12:00)
[2023-09-08 12:04] LABS: BASO % 0.5 % (0.0-2.0); EOS # 0.2 K/mm3 (0.0-0.7); EOS % 2.7 % (0.0-4.0); GRAN # 4.8 K/mm3 (1.4-6.5); GRAN % 81.4 % (42.2-75.2); HEMOGLOBIN 10.9 g/dl (12.5-16.0); LYMPH # 0.5 K/mm3 (1.2-3.4); LYMPH % 8.4 % (20.0-51.0); MEAN CELL VOLUME 93 fl (80.0-100.0); MEAN CORPUSCULAR HEMOGLOBIN 29 pg (27-31); MEAN CORPUSCULAR HGB CONC 31 g/dl (33.0-37.0); MEAN PLATELET VOLUME 10.1 fl (7.4-10.4); MONO # 0.4 K/mm3 (0.1-0.6); MONO % 6.5 % (1.7-9.3); PLATELET COUNT 349 K/mm3 (130-400); RED BLOOD COUNT 3.81 M/mm3 (4.10-5.30); REDCELL DISTRIBUTION WIDTH-CV 32.8 % (11.5-14.5)
[2023-09-08 12:05] LABS: HEMATOCRIT 35.4 % (37.0-47.0)
[2023-09-08 12:15] LABS: CALCIUM 9.6 mg/dL (8.4-10.2); CREATININE, serum 0.76 mg/dL (0.57-1.11); POTASSIUM 3.8 mEq/L (3.5-4.5)
[2023-09-08] MEDS ORDERED: ePHEDrine 50 MG/ML VIAL ONE (12:30)
[2023-09-08] MEDS ORDERED: oxyCODONE 5 MG TAB PO PRN ×2 (15:00)
[2023-09-08] MEDS ORDERED: LR 1,000 ML IV SCH (15:00)
[2023-09-08] MEDS ORDERED: Naloxone 0.4 MG/ML VIAL IV PRN (15:00)
[2023-09-08] MEDS ORDERED: Morphine 4 MG/ML VIAL IV PRN (15:00)
[2023-09-08] MEDS ORDERED: CALCIUM CITRAT200 M2 (15:31)
[2023-09-08] MEDS ORDERED: PROTONIX 40MG T40 MG PO (15:31)
[2023-09-08] MEDS ORDERED: CALCIUM CITRATE1 TA1 PO (15:32)
--- NOTE | 2023-09-08 15:57 | NUR ---
pt transferred to room from pacu, family at bedside. vss. pt denies pain. x3 lap sites and 1 abdominal midline dressings are cdi. pt tolerating ice chips, fernandez to dd w clear yellow urine output. IV to right ac. TRICIA Yates aware of pts arrival. oriented pt to room. call light in reach.
[2023-09-08] MEDS ORDERED: FLONASE NASAL S16 GM NS (16:19)
[2023-09-08] MEDS ORDERED: ELIQUIS 5MG PO (16:24)
[2023-09-08] MEDS ORDERED: Carvedilol 25 MG TAB PO SCH (17:00)
[2023-09-08] MEDS ORDERED: Dextrose (Glucose) 15 GM (4 x 3.75 GM) Chewable TABLET PACK PO PRN (17:15)
[2023-09-08] MEDS ORDERED: Dextrose 50% Water 25 GM/50 ML SYRINGE IV PRN (17:15)
[2023-09-08] MEDS ORDERED: Glucagon 1 MG VIAL IM PRN (17:15)
[2023-09-08] MEDS ORDERED: Insulin Lispro (HumaLOG) SQ SCH (18:00)
[2023-09-08] MEDS ORDERED: Ibuprofen 400 MG TAB PO SCH (18:00)
[2023-09-08] MEDS ORDERED: Albuterol/Ipratropium 3 MG-0.5 MG/3 ML Neb Soln IH PRN (19:00)
--- NOTE | 2023-09-08 20:00 | NUR ---
PT IN BED, IS ALERT AND ORIENTED X4. HAS IVF TO RAC INFUSING WITHOUT PROBLEM. O2 @1L/NC. DENIES PAIN. ABD WITH LAP SITES X3 AND SMALL MIDLINE WITH DRY GAUZE. FAMILY BROUGHT CPAP.
[2023-09-08] MEDS ORDERED: Primidone 50 MG TAB PO SCH (21:00)
[2023-09-08] MEDS ORDERED: Fluticasone Nasal 50 MCG/Spray 16 GM BOTTLE NS SCH (21:00)
--- NOTE | 2023-09-08 21:31 | NUR ---
ASSISTED TO CHAIR AT THIS TIME, PT DID WELL.
[2023-09-09] VITALS (12 sets, daily range): BP systolic 112–132; BP diastolic 62–69; PULSE 57–70; TEMP 97.4–98.3
--- NOTE | 2023-09-09 | NUR ---
TAKES SCHEDULED MOTRIN WITH APPLESAUCE. HAS CPAP ON.
--- NOTE | 2023-09-09 06:00 | NUR ---
PT TAKES SCHEDULED MED WITHOUT PROBLEM. DENIES PAIN. IVF CONTINUE, PO HAS BEEN MINIMAL. CPAP ON. ADVANCED DIET TO FULL LIQUIDS.
[2023-09-09 06:46] LABS: BASO % 0.3 % (0.0-2.0); EOS % 0.1 % (0.0-4.0); GRAN # 6.8 K/mm3 (1.4-6.5); GRAN % 86.6 % (42.2-75.2); HEMOGLOBIN 10.4 g/dl (12.5-16.0); LYMPH # 0.4 K/mm3 (1.2-3.4); LYMPH % 5.2 % (20.0-51.0); MEAN CELL VOLUME 91 fl (80.0-100.0); MEAN CORPUSCULAR HEMOGLOBIN 28 pg (27-31); MEAN CORPUSCULAR HGB CONC 31 g/dl (33.0-37.0); MEAN PLATELET VOLUME 10.1 fl (7.4-10.4); MONO # 0.6 K/mm3 (0.1-0.6); MONO % 7.4 % (1.7-9.3); PLATELET COUNT 351 K/mm3 (130-400); RED BLOOD COUNT 3.66 M/mm3 (4.10-5.30); REDCELL DISTRIBUTION WIDTH-CV 32.2 % (11.5-14.5)
[2023-09-09 06:47] LABS: HEMATOCRIT 33.4 % (37.0-47.0)
[2023-09-09 07:04] LABS: CALCIUM 9.5 mg/dL (8.4-10.2); CREATININE, serum 0.75 mg/dL (0.57-1.11); POTASSIUM 4.1 mEq/L (3.5-4.5)
--- NOTE | 2023-09-09 07:45 | NUR ---
pt a&ox4 resting in bed. pt had liquid bowel movement this morning. pt denies pain. bowel sounds are active. x3 lap sites and midline incisions are cdi. pt tolerating diet without nausea, assisted with breakfast with patients tremors. fernandez discontinued. IV to right ac with fluids at 75ml/hr. pt denies needs at this time. call light in reach.
[2023-09-09] MEDS ORDERED: Amiodarone 200 MG TAB PO SCH (09:00)
[2023-09-09] MEDS ORDERED: Spironolactone 25 MG TAB PO SCH (09:00)
--- NOTE | 2023-09-09 10:15 | NUR ---
cooler worker met with pt and her daughter's Ella in the room to discuss discharge planning. She reports to live with her , Tello [phone] in [place] and her daughter, Iliana is staying with her temporarily. She reports to see Dr. Analia Banerjee and obtain medications from [facility] pharmacy with no difficulties. She confirmed her insurance as Medicare A and B and BCBS. She has a DPOA-HC on file listing the above individuals as agents, primary. She is independent with ADLS and uses a rolator and CPAP for DME. She has no concerns, but reports previous falls and she was at [facility] and had [facility] HH previously. Pt was not interested in HH at this time and was informed to discuss with her PCP if she feels the need. Discharge Plan: home
--- NOTE | 2023-09-09 10:19 | NUR ---
Initial visit; Patient thanked Marketing Coordinator for looking in on her and offering God's blessings. Patient's skip operator had just been with her and offered prayer so Marketing Coordinator will keep her in Marketing Coordinator's prayers.
[2023-09-09] MEDS ORDERED: Atorvastatin 20 MG TAB PO SCH (21:00)
--- NOTE | 2023-09-09 21:08 | NUR ---
PT IN BED, IS ALERT AND ORIENTED X4. PT READING HER IPAD. HS MEDS GIVEN. PT DENIES PAIN AND DOESN'T WANT HER SCHEDULED TYLENOL. ABD SOFT, BS ACTIVE. HAVING LOOSE DARK STOOLS. DRSG TO MIDLINE D/I AND LAP SITES X3 W/BANDAIDS THAT ARE DRY. INT TO RAC. SCDS ON. HAS BLE EDEMA, WHICH SHE REPORTS IS NORMAL FOR HER. CPAP AT BEDSIDE. HAS UPPER EXT TREMORS.
[2023-09-10] VITALS (7 sets, daily range): BP systolic 124–137; BP diastolic 62–73; PULSE 66–83; TEMP 98.1–98.3
[2023-09-10 06:33] LABS: BASO % 0.3 % (0.0-2.0); EOS # 0.2 K/mm3 (0.0-0.7); EOS % 2.3 % (0.0-4.0); GRAN # 7.5 K/mm3 (1.4-6.5); LYMPH # 0.4 K/mm3 (1.2-3.4); LYMPH % 4.9 % (20.0-51.0); MEAN CELL VOLUME 92 fl (80.0-100.0); MEAN CORPUSCULAR HGB CONC 31 g/dl (33.0-37.0); MEAN PLATELET VOLUME 10.5 fl (7.4-10.4); MONO # 0.5 K/mm3 (0.1-0.6); MONO % 6.2 % (1.7-9.3); PLATELET COUNT 311 K/mm3 (130-400); RED BLOOD COUNT 3.29 M/mm3 (4.10-5.30); REDCELL DISTRIBUTION WIDTH-CV 32.6 % (11.5-14.5)
[2023-09-10 06:38] LABS: HEMOGLOBIN 9.3 g/dl (12.5-16.0); MEAN CORPUSCULAR HEMOGLOBIN 28 pg (27-31)
[2023-09-10 06:39] LABS: HEMATOCRIT 30.3 % (37.0-47.0)
[2023-09-10 06:52] LABS: CALCIUM 8.4 mg/dL (8.4-10.2); CREATININE, serum 0.74 mg/dL (0.57-1.11); POTASSIUM 3.8 mEq/L (3.5-4.5)
--- NOTE | 2023-09-10 07:29 | NUR ---
Pt awake in bed. [place] aids in. Pt states her skin is dry. Provided Pt with lotion and skin care products from home. No further needs. Call light in reach.
--- NOTE | 2023-09-10 09:05 | NUR ---
Pt sitting up at bedside. Finished breakfast. Pt Stacy&Ox4. VSS. S1S2. Clear lungs on RA. ABD is round, soft, non-tender with audible bowel sounds. Palpable pulses in all extremities with 3/5 strength. IV in R AC is patent no issues. R arm is red and warm to touch. No swelling. Pt reports started overnight. Will mention to providers when rounding. Administered AM meds. x3 lap sites on ABD CDI with bandaids. Midline is CDI with gauze dressing. Call light in reach.
--- NOTE | 2023-09-10 12:22 | NUR ---
Educated Pt and family on D/C instructions. Answered questions. IV discontinued at an earlier time by this RN. Tip intact and pressure dressing in place. No further needs. Pt will call when ready for assistance to car.
--- NOTE | 2023-09-10 13:39 | NUR ---
Pt escorted out to car with family by Park via WC. No further needs.
[2023-09-11] MEDS ORDERED: CORDARONE200 MG/TAB PO (10:20)
== END 2023-09-10 13:30 | disposition home or self-care (01) | DRG 330 ==
LOC: INPTSU 10:31 → SURG 12:30
PROVIDERS: Nurse Anesthetist, Certified Registered; Physician Assistant; ADMIT Surgery
PROC: 0DBF4ZZ Excision of Right Large Intestine, Percutaneous Endoscopic Approach (ICD-10-PCS; principal; 2023-09-08 12:30)
DX: C18.2 Malignant neoplasm of ascending colon (principal); C18.3 Malignant neoplasm of hepatic flexure; D50.0 Iron deficiency anemia secondary to blood loss (chronic); I48.0 Paroxysmal atrial fibrillation; J47.9 Bronchiectasis, uncomplicated; N18.30 Chronic kidney disease, stage 3 unspecified; I87.8 Other specified disorders of veins; E55.9 Vitamin D deficiency, unspecified; E78.5 Hyperlipidemia, unspecified; H81.09 Meniere's disease, unspecified ear; R32 Unspecified urinary incontinence; G25.0 Essential tremor; D46.9 Myelodysplastic syndrome, unspecified; G47.33 Obstructive sleep apnea (adult) (pediatric); I12.9 Hypertensive chronic kidney disease with stage 1 through stage 4 chronic kidney disease, or unspecified chronic kidney disease; I08.1 Rheumatic disorders of both mitral and tricuspid valves; J30.2 Other seasonal allergic rhinitis; E66.9 Obesity, unspecified; M81.0 Age-related osteoporosis without current pathological fracture; E11.22 Type 2 diabetes mellitus with diabetic chronic kidney disease; Z96.641 Presence of right artificial hip joint; Z96.653 Presence of artificial knee joint, bilateral; M19.90 Unspecified osteoarthritis, unspecified site; Z79.01 Long term (current) use of anticoagulants; Z88.2 Allergy status to sulfonamides; Z88.8 Allergy status to other drugs, medicaments and biological substances; Z88.1 Allergy status to other antibiotic agents; Z90.49 Acquired absence of other specified parts of digestive tract; Z86.73 Personal history of transient ischemic attack (TIA), and cerebral infarction without residual deficits; Z79.899 Other long term (current) drug therapy; Z99.81 Dependence on supplemental oxygen; Z99.89 Dependence on other enabling machines and devices; Z68.30 Body mass index [BMI] 30.0-30.9, adult
CPT/HCPCS: A4314; A9284; J0665; J0690; J1100; J1650; J1815; J2405; J2704; J3010; J7120

== ENCOUNTER 2023-09-10 16:57 | Observation (INO) | payer MEDICARE, BC ==
[~2023-09-10] VITALS: Ht 160 cm; Wt 64.5 kg
[~2023-09-10 16:57] MED LIST changes: +CALCIUM CITRAT200 M2; +CALCIUM CITRATE1 TA1 PO; +ELIQUIS 5MG PO; +FLONASE NASAL S16 GM NS; -LR 1,000 ML IV SCH; -Lidocaine PF 2% (20 MG/ML) 5 ML VIAL ONE; -NS 10 ML IV ONE; -Ondansetron 4 MG/2 ML VIAL ONE; +PROTONIX 40MG T40 MG PO; -Rocuronium 50 MG/5 ML Multi-Dose VIAL ONE; -dexAMETHasone 10 MG/ML VIAL ONE
[2023-09-10 17:22] LABS: BASO # 0.1 K/mm3 (0.0-0.2); BASO % 0.4 % (0.0-2.0); EOS # 0.3 K/mm3 (0.0-0.7); EOS % 1.9 % (0.0-4.0); GRAN # 11.3 K/mm3 (1.4-6.5); GRAN % 82.8 % (42.2-75.2); HEMATOCRIT 37.5 % (37.0-47.0); LYMPH % 7.3 % (20.0-51.0); MEAN CELL VOLUME 94 fl (80.0-100.0); MEAN CORPUSCULAR HEMOGLOBIN 29 pg (27-31); MEAN CORPUSCULAR HGB CONC 31 g/dl (33.0-37.0); MEAN PLATELET VOLUME 10.1 fl (7.4-10.4); MONO % 7.1 % (1.7-9.3); PLATELET COUNT 368 K/mm3 (130-400); RED BLOOD COUNT 4.01 M/mm3 (4.10-5.30); REDCELL DISTRIBUTION WIDTH-CV 33.2 % (11.5-14.5)
[2023-09-10 17:24] LABS: HEMOGLOBIN 11.5 g/dl (12.5-16.0)
[2023-09-10 17:29] LABS: INR 1.2 (0.8-3.0); PROTHROMBIN TIME 13.3 SECONDS (9.7-12.8)
[2023-09-10] MEDS ORDERED: Heparin 5,000 UNITS/ML 1 ML VIAL IV PRN (17:45)
[2023-09-10] MEDS ORDERED: NS 1,000 ML IV ONE (17:45)
[2023-09-10] MEDS ORDERED: Heparin 5,000 UNITS/ML 1 ML VIAL IV ONE (17:45)
[2023-09-10] MEDS ORDERED: Heparin/D5W 250 ML IV SCH (17:45)
[2023-09-10 17:48] LABS: ALBUMIN 3.3 g/dL (3.4-4.8); BILIRUBIN,TOTAL 0.6 mg/dL (0.2-1.2); CALCIUM 9.2 mg/dL (8.4-10.2); CREATININE, serum 0.79 mg/dL (0.57-1.11); POTASSIUM 4.2 mEq/L (3.5-4.5); TOTAL PROTEIN 6.1 g/dl (6.2-8.1)
[2023-09-10 17:56] LABS: TROPONIN-I 0.046 ng/mL (0.00-0.033)
[2023-09-10 18:05] LABS: PARTIAL THROMBOPLASTIN TIME 32.1 SECONDS (26.0-37.0)
[2023-09-10] MEDS ORDERED: Amiodarone 450 MG in D5W Excel 250 ML IV SCH (18:45)
[2023-09-10 19:55] LABS: MAGNESIUM 1.7 mg/dL (1.6-2.6); PHOSPHOROUS 2.6 mg/dL (2.3-4.7)
[2023-09-10 20:16] LABS: THYROID STIMULATING HORMONE 4.029 uIU/mL (0.350-4.940)
[2023-09-10] MEDS ORDERED: Albuterol/Ipratropium 3 MG-0.5 MG/3 ML Neb Soln IH PRN (20:30)
[2023-09-10 21:15] VITALS: BP 129/63; PULSE 89; TEMP 97.9
[2023-09-10 21:45] VITALS: BP 140/67; PULSE 87; TEMP 97.8
--- NOTE | 2023-09-10 22:41 | NUR ---
Report received from ER nurse at 2049. Patient arrived to medical unit at 2104. Alert and oriented x 4, and able to make needs known. Denies having pain and discomfort. Peripheral IV to right forearm with Amiodarone running per orders. Peripheral IV to left forearm with Heparin running per orders. Came on oxygen at 2 L/min via NC, weaned to 0.5 L/min via NC. Denies SOB and dyspnea. LS CTA. HRR. Telemetry in place, showing normal sinus. BSAx4. Had surgery earlier this week. 3 Lap sites with bandaids CDI. 1 vertical surgical site with guaze CDI. No edema. Voices no questions, needs, or concerns at this time. In bed with call light within reach. High fall risk precautions in place. Bed alarm on.
[2023-09-10 22:45] VITALS: BP 110/47; PULSE 67; TEMP 97.6
[2023-09-10] MEDS ORDERED: Montelukast 10 MG TAB PO PRN (23:00)
[2023-09-10] MEDS ORDERED: IPRATROPIUM 0.06% NS PRN (23:00)
--- NOTE | 2023-09-10 23:15 | NUR ---
Troponin called to [facility].
[2023-09-10 23:45] VITALS: BP 135/52; PULSE 70; TEMP 97.9
[2023-09-11] VITALS (10 sets, daily range): BP systolic 110–153; BP diastolic 47–78; PULSE 64–82; TEMP 98.1–98.3
[2023-09-11] MEDS ORDERED: Amiodarone 450 MG in D5W Excel 250 ML IV SCH (00:45)
--- NOTE | 2023-09-11 06:47 | NUR ---
Remains in sinus rhythm on telemetry. Continues on Heparin and Amiodarone drip per orders. Voices no questions, needs, or concerns at this time. In bed with call light within reach. High fall risk precautions in place. Bed alarm on.
[2023-09-11] MEDS ORDERED: Albuterol/Ipratropium 3 MG-0.5 MG/3 ML Neb Soln IH SCH (07:00)
--- NOTE | 2023-09-11 07:00 | NUR ---
PATIENT AWAKE AND ALERT ,SITTING UP IN BED. PATIEN TDENIES ANY NEEDS OR COMPLAINTS AT THIS TIME. HEPARIN AND AMIO GTT INFUSING ORDERED. CHAY LLIGHT WTIHIN REACH, FALL PRECAUTIONS IN PLACE.
[2023-09-11 07:10] LABS: COLLECTION METHOD CLEAN CATCH
[2023-09-11 07:31] LABS: URINE APPEARANCE CLEAR (CLEAR/HAZY); URINE BLOOD NEGATIVE (NEGATIVE); URINE COLOR YELLOW (YELLOW); URINE GLUCOSE NEGATIVE (NEGATIVE); URINE KETONE NEGATIVE (NEGATIVE); URINE NITRATE NEGATIVE (NEGATIVE); URINE PROTEIN(semi-quant) NEGATIVE (NEGATIVE); URINE UROBILINOGEN 0.2 E.U/dL (0.2-1.0)
[2023-09-11] MEDS ORDERED: Primidone 50 MG TAB PO SCH (09:00)
[2023-09-11] MEDS ORDERED: Cholecalciferol (Vit D3) 1000 Units TAB PO SCH (09:00)
[2023-09-11] MEDS ORDERED: Lutein 20 MG CAP PO SCH (09:00)
[2023-09-11] MEDS ORDERED: Calcium Citrate/Vit D3 200 mg-250 Units TAB PO SCH (09:00)
[2023-09-11] MEDS ORDERED: Fluticasone Nasal 50 MCG/Spray 16 GM BOTTLE NS SCH (09:00)
[2023-09-11] MEDS ORDERED: CORDARONE200 MG/TAB PO (10:20)
[2023-09-11] MEDS ORDERED: Amiodarone 200 MG TAB PO ONE (11:15)
--- NOTE | 2023-09-11 12:07 | NUR ---
PATIENT GIVEN DISCHARGE INSTRUCTIONS AND EDUCAITON, WITH HER AND DAUGHTER AT BEDSIDE. BOTH PERIPHERAL IV REMOVED, TELE REMOVED. ALL QUESTIOSNS ANSWERED, PATIENT AWARE OF DISCHARGE INSTRUCITONS. GREYSUMAN TTAKEN VIA WHEELCHAIR OT PATRINET ADMISSIONS WHERE SHE WAS LEFT WITH HER FAMUILY, GETTING AN OUTPATIENT CHART MADE FOR LAB DRAWAS.
--- NOTE | 2023-09-11 12:43 | NUR ---
Corporate Trainer attended clinical rounds with the team and patient is going to be discharged home today. Patient was discharged yesterday but readmitted overnight for afib. SW met with patient to discuss discharge planning. Patient lives in [place] with her , Tello (ph#[phone]) and advised her daughter is here from [place] staying with them. Patient sees Dr. Banerjee for primary care and gets her medications from [facility]. Patient stated she does not drive much anymore and mostly has Tello drive her where she needs to go. Patient has a home cpap and rollator at bedside. Patient stated she is normally independent with ADLS and has family at home that can assist as needed. SW discussed Home Health and it's benefits with patient. Patient advised she has had HH in the past, however did not feel she needed it at this time. SW attempted to contact daughter, Danae (ph#[phone]) and left a voicemail. Discharge Plan; Home
[2023-09-11] MEDS ORDERED: Atorvastatin 20 MG TAB PO SCH (21:00)
== END 2023-09-11 12:10 | disposition home or self-care (01) ==
LOC: COL.ER 16:57 → MEDICAL 19:03
PROVIDERS: Nurse Practitioner Family; Nurse Practitioner Primary Care; ADMIT Internal Medicine
DX: I97.191 Other postprocedural cardiac functional disturbances following other surgery (principal); I48.0 Paroxysmal atrial fibrillation; R79.89 Other specified abnormal findings of blood chemistry; E78.5 Hyperlipidemia, unspecified; I12.9 Hypertensive chronic kidney disease with stage 1 through stage 4 chronic kidney disease, or unspecified chronic kidney disease; N18.6 End stage renal disease; J96.01 Acute respiratory failure with hypoxia; J47.9 Bronchiectasis, uncomplicated; G47.33 Obstructive sleep apnea (adult) (pediatric); R65.10 Systemic inflammatory response syndrome (SIRS) of non-infectious origin without acute organ dysfunction; Z99.89 Dependence on other enabling machines and devices; Z85.038 Personal history of other malignant neoplasm of large intestine; Z79.899 Other long term (current) drug therapy; Z90.49 Acquired absence of other specified parts of digestive tract; Z79.01 Long term (current) use of anticoagulants; Z86.73 Personal history of transient ischemic attack (TIA), and cerebral infarction without residual deficits
CPT/HCPCS: G0378; J0282; J1644; J3475; J7030; J7060